=== PATIENT | female | born 1985 | race Two or more races ===

== ENCOUNTER 2024-08-07 06:35 | Emergency (ER) | payer BC, OTHER ==
[~2024-08-07] VITALS: Ht 157.5 cm; Wt 90.9 kg
[2024-08-07 07:22] VITALS: BP 121/82; PULSE 71; RESP 14; TEMP 98.2; O2SAT 96
[2024-08-07] MEDS ORDERED: IBUP-1456 PO (07:47)
[2024-08-07] MEDS: KETOROLAC TROMETH 60MG/2ML VIAL IM ONE (07:52)
== END 2024-08-07 08:04 | disposition home or self-care (01) ==
LOC: ER 06:35 → EDBD 06:35 → ER 08:04
DX: M23.92 Unspecified internal derangement of left knee (principal)
CPT/HCPCS: 73562; 96372; 99283; J1885

== ENCOUNTER 2025-03-27 16:42 | Observation (INO) | payer BC ==
[~2025-03-27 16:42] MED LIST: IBUP-1456 PO
[2025-03-27] MEDS ORDERED: METF-372 PO (17:27)
[2025-03-27] MEDS ORDERED: PREN-96 PO (17:27)
[2025-03-27] MEDS ORDERED: GLYB2.5T8 PO (17:27)
--- NOTE | 2025-03-27 17:56 | DVH ---
EXAM: US OBSTERICAL LIMITED HISTORY: decreased movement COMPARISON: None TECHNIQUE: Transabdominal imaging was utilized. Grayscale and color doppler evaluation. Images were s tored in the patient's permanent medical record. FINDINGS: Anterior placenta location. Normal cardiac heart rate measuring 149 beats per minute. No placenta abr uption or previa or accreta. Normal movement. IMPRESSION: 1. Normal appearance. 2. Normal cardiac heart rate.
--- NOTE | 2025-03-27 23:45 | DVHDS2 ---
Physician Discharge Progress N Final Diagnosis: decreased movement 29wks,gdm Operations or Procedures: Operations or Procedures nst reactive reviewed,sono Condition on Discharge: Good Disposition: Home Discharge Instructions: Diet: Consistent carbohydrate Activity: Light activity Medications: na Follow Up Care: Specialist: 1w Discharge Statement: "Patient was advised to return to the ER or call 911 if any headaches, dizziness, shortness of breath, chest pain, abdominal pain, bleeding, fevers, or worsening of medical condition. Patient was counseled about treatment plan, medications, possible side effects, patientverbalized understanding. All questions were answered to the best of my ability. This discharge took greater then 30 minutes in planning, reviewing documentation, counseling the patient, and discussing with other team members." Visit Coding OBGYN Date of Service: March 27, 2025 Billing Provider: MCKINLEY SALGADO DO BEAUTY ARTIST Common Visit Codes: [id number] OBS CARE (HIGH) BEAUTY ARTIST Procedure Codes: 26255-37- NON-STRESS TEST MCKINLEY SALGADO DO March 27, 2025 23:45
== END 2025-03-27 18:02 | disposition home or self-care (01) ==
LOC: LDRP 16:42
PROVIDERS: ADMIT Obstetrics & Gynecology; ATTEND Obstetrics & Gynecology
DX: O36.8130 Decreased fetal movements, third trimester, not applicable or unspecified (principal); O24.419 Gestational diabetes mellitus in pregnancy, unspecified control; Z3A.29 29 weeks gestation of pregnancy; Z79.899 Other long term (current) drug therapy
CPT/HCPCS: 59025; 76815; 81002; 82948; 82962; 94760; G0378

== ENCOUNTER 2025-04-13 06:46 | Observation (INO) | payer MEDICAID ==
[~2025-04-13 06:46] MED LIST changes: +GLYB2.5T8 PO; +METF-372 PO; +PREN-96 PO
--- NOTE | 2025-04-13 12:07 | DVH ---
CLINICAL HISTORY: Gestational diabetes. COMPARISON: None TECHNIQUE: biophysical profile was performed. Transabdominal sonographic images of the fetus we re obtained. FINDINGS: The fetus is in cephalic position. heart rate measures 144 BPM. Amniotic fluid index measures 17.1 cm. The placenta is anterior in position with no evidence of previa or abruption seen. BPP profile is an overall score of 8/8, with 2/2 points for breathing, with at least one episode of breathing over a 30 second duration during a 30 minute observation, 2/2 points for m ovements, with 3 or more discrete body or limb movements, 2/2 points for tone, with one or more episodes of extremity extension with return to flexion, or opening and closing of hand, and 2/ 2 points for amniotic fluid, with at least 1 pocket of amniotic fluid that measures 2 cm in 2 perpend icular planes. IMPRESSION: BPP score of 8/8.
--- NOTE | 2025-04-22 13:50 | DVHDS2 ---
Physician Discharge Progress N Final Diagnosis: gdm Operations or Procedures: Operations or Procedures nst reviewed reactive,sono Condition on Discharge: Good Disposition: Home Discharge Instructions: Diet: Consistent carbohydrate Activity: Light activity Medications: na Follow Up Care: Specialist: 3d Discharge Statement: "Patient was advised to return to the ER or call 911 if any headaches, dizziness, shortness of breath, chest pain, abdominal pain, bleeding, fevers, or worsening of medical condition. Patient was counseled about treatment plan, medications, possible side effects, patientverbalized understanding. All questions were answered to the best of my ability. This discharge took greater then 30 minutes in planning, reviewing documentation, counseling the patient, and discussing with other team members." Visit Coding OBGYN Date of Service: Apr 13, 2025 Billing Provider: MCKINLEY SALGADO DO INFRASTRUCTURE SOFTWARE ENGINEER Common Visit Codes: [id number]-[id number] OBS CARE (HIGH) INFRASTRUCTURE SOFTWARE ENGINEER Procedure Codes: 37855-21- NON-STRESS TEST MCKINLEY SALGADO DO Apr 22, 2025 13:50
== END 2025-04-13 12:34 | disposition home or self-care (01) ==
LOC: UNDOADMOB 11:00 → LDRP 11:00 → EDUNIT# 11:22 → LDRP 11:22 → UNDODISOB 12:34
PROVIDERS: ADMIT Obstetrics & Gynecology; ATTEND Obstetrics & Gynecology
DX: O24.419 Gestational diabetes mellitus in pregnancy, unspecified control (principal); Z98.890 Other specified postprocedural states; Z79.899 Other long term (current) drug therapy; Z3A.32 32 weeks gestation of pregnancy
CPT/HCPCS: 59025; 76819; 81002; 82948; 82962; 94760; G0378

== ENCOUNTER 2025-04-16 07:54 | Observation (INO) | payer MEDICAID ==
--- NOTE | 2025-04-16 08:49 | DVH ---
CLINICAL HISTORY: Gestational diabetes. COMPARISON: Prior ultrasound dated 03/27/2025. TECHNIQUE: biophysical profile was performed. Transabdominal sonographic images of the fetus we re obtained. FINDINGS: The fetus is in cephalic position. heart rate measures 132 BPM. Amniotic fluid index measures 16.2 cm. The placenta is anterior in position with no evidence of placenta previa or abrupti on. BPP profile is an overall score of 8/8, with 2/2 points for breathing, with at least one episode of breathing over a 30 second duration during a 30 minute observation, 2/2 points for m ovements, with 3 or more discrete body or limb movements, 2/2 points for tone, with one or more episodes of extremity extension with return to flexion, or opening and closing of hand, and 2/ 2 points for amniotic fluid, with at least 1 pocket of amniotic fluid that measures 2 cm in 2 perpend icular planes. IMPRESSION: BPP score of 8/8.
== END 2025-04-16 09:39 | disposition home or self-care (01) ==
LOC: LDRP 07:54
PROVIDERS: ADMIT Obstetrics & Gynecology; ATTEND Obstetrics & Gynecology
DX: O24.419 Gestational diabetes mellitus in pregnancy, unspecified control (principal); Z3A.32 32 weeks gestation of pregnancy; Z79.899 Other long term (current) drug therapy; Z98.890 Other specified postprocedural states
CPT/HCPCS: 59025; 76819; 81002; 82948; 82962; 94760; G0378

== ENCOUNTER 2025-04-20 09:26 | Observation (INO) | payer MEDICAID ==
--- NOTE | 2025-04-20 16:53 | DVH ---
BIOPHYSICAL PROFILE HISTORY: GDMA2 TECHNIQUE: Multiple real-time grayscale sonographic images through the gravid uterus of the fetus wi th duplex Doppler color flow. FINDINGS: BIOPHYSICAL PROFILE: breathing score: 2 movement score: 2 tone score: 2 Quantitative QUAN score: 2 Total score: 8 out of 8 heart rate of 142 beats per minute. lie cephalic. Placenta is anteriorly positioned. QUAN 15.5 cm. IMPRESSION: Biophysical profile score: 8 out of 8
--- NOTE | 2025-04-21 06:19 | DVHDS2 ---
Discharge Summary Date of Admission Apr 20, 2025 at 15:53 Date of Discharge: Apr 20, 2025 Admitting Diagnosis Thirty-three weeks GDM A2 here for NST which was performed as well as ultrasound Labs/Diagnostic Data: None Laboratory Results Test 04/20/25 16:50 POC Glucose 113 mg/dl (70-106) Brief Hx & Hospital Course: Patient underwent NST ultrasound all reassuring Operations or Procedures None Condition at Discharge: Good Final Diagnosis/Problems List 33 weeks GDM A2 advanced maternal age Discharge Disposition: Home Discharge Instruct/Medications Diet: Consistent carbohydrate Activity: Light activity Follow Up/Referral: As scheduled kick counts labor precautions sugar precautions Discharge Statement: "Patient was advised to return to the ER or call 911 if any headaches, dizziness, shortness of breath, chest pain, abdominal pain, bleeding, fevers, or worsening of medical condition. Patient was counseled about treatment plan, medications, possible side effects, patientverbalized understanding. All questions were answered to the best of my ability. This discharge took greater then 30 minutes in planning, reviewing documentation, counseling the patient, and discussing with other team members." ASSESSMENT ASSESSMENT Assessment Visit Coding OBGYN Date of Service: Apr 20, 2025 Billing Provider: SHARYN SOUTH DO BILINGUAL TEACHER Common Visit Codes: 01470-YTS/OBS SAME DATE (LOW), 60045-KTX/OBS SAME DATE (MOD), 71566-CYM/OBS SAME DATE (HIGH) BILINGUAL TEACHER Procedure Codes: 88706-54- NON-STRESS TEST SHARYN SOUTH DO Apr 21, 2025 06:19
== END 2025-04-20 17:15 | disposition home or self-care (01) ==
LOC: LDRP 09:26 → UNDOADMOB 15:53 → LDRP 15:53 → UNDODISOB 17:15
PROVIDERS: ADMIT Obstetrics & Gynecology; ATTEND Obstetrics & Gynecology
DX: O24.419 Gestational diabetes mellitus in pregnancy, unspecified control (principal); Z98.890 Other specified postprocedural states; Z79.899 Other long term (current) drug therapy; Z3A.33 33 weeks gestation of pregnancy
CPT/HCPCS: 59025; 76819; 81002; 82948; 82962; 94760; G0378

== ENCOUNTER 2025-04-23 14:00 | Observation (INO) | payer MEDICAID ==
--- NOTE | 2025-04-23 16:11 | DVH ---
EXAM: US BIOPHYSICAL PROFILE HISTORY: GDMA2/AMA COMPARISON: US BIOPHYSICAL PROFILE on DOS: 04/20/25, US BIOPHYSICAL PROFILE on DOS: 04/16/25 TECHNIQUE: Multiple transabdominal real-time grayscale sonographic images through the gravid uterus of the fetus with duplex Doppler color flow and M-mode spectral analysis Findings/Impression: Single live intrauterine in vertex presentation with heart rate of 130 bpm. Biophysical profile was performed with 2 points for respirations, 2 points for movement, 2 points for tone and 2 points for amniotic fluid index. Biophysical profile score of 8/8. Amniotic fluid is within normal limits with QUAN 20.0 cm and MVP 6.7 cm. Normal QUAN (5-25 cm) Normal MVP (2-8 cm)
--- NOTE | 2025-04-24 13:34 | DVHDS2 ---
Physician Discharge Progress N Final Diagnosis: cholestasis of preg 34wks Operations or Procedures: Operations or Procedures nst reactive reviwed,millieo Condition on Discharge: Good Disposition: Home Discharge Instructions: Diet: Consistent carbohydrate Activity: Light activity Medications: na Follow Up Care: Specialist: 3d Discharge Statement: "Patient was advised to return to the ER or call 911 if any headaches, dizziness, shortness of breath, chest pain, abdominal pain, bleeding, fevers, or worsening of medical condition. Patient was counseled about treatment plan, medications, possible side effects, patientverbalized understanding. All questions were answered to the best of my ability. This discharge took greater then 30 minutes in planning, reviewing documentation, counseling the patient, and discussing with other team members." Visit Coding OBGYN Date of Service: Apr 24, 2025 Billing Provider: MCKINLEY SALGADO DO HARPOONER Common Visit Codes: 39031-[id number] OBS CARE (HIGH) HARPOONER Procedure Codes: 82589-81- NON-STRESS TEST MCKINLEY SALGADO DO Apr 24, 2025 13:34
== END 2025-04-23 16:05 | disposition home or self-care (01) ==
LOC: LDRP 14:00
PROVIDERS: ADMIT Obstetrics & Gynecology; ATTEND Obstetrics & Gynecology
DX: O26.643 Intrahepatic cholestasis of pregnancy, third trimester (principal); K83.1 Obstruction of bile duct; Z3A.34 34 weeks gestation of pregnancy; Z79.899 Other long term (current) drug therapy; Z98.890 Other specified postprocedural states
CPT/HCPCS: 59025; 76819; 81002; 82948; 82962; 94760; G0378

== ENCOUNTER 2025-04-27 02:31 | Observation (INO) | payer MEDICAID ==
--- NOTE | 2025-04-27 14:45 | DVH ---
BIOPHYSICAL PROFILE HISTORY: GDMA2, AMA TECHNIQUE: Multiple transabdominal real-time grayscale sonographic images through the gravid uterus of the fetus with duplex Doppler color flow and M-mode spectral analysis FINDINGS: BIOPHYSICAL PROFILE: breathing score: 2 movement score: 2 tone score: 2 Quantitative QUAN score: 2 (QUAN: 21 Cm.) Total score: 8 The cervix not well visualized. Single live fetus in cephalic presentation. heart rate 151 beats per minute. Anterior placenta without previa or abruption IMPRESSION: Biophysical profile score: 8
--- NOTE | 2025-04-28 06:21 | DVHDS2 ---
Discharge Summary Discharge Summary Date of Admission: Apr 27, 2025 Date of Discharge: Apr 27, 2025 Discharge Diagnosis: 34 weeks GDMA2, AMA Procedures NST US Brief History: NST BPP performed reassuring Hospital Course nst US performed Physical exam on Discharge normal Discharge Disposition: Home Discharge Instructions kick counts labor precautions Medications resume home meds Follow up as scheduled Visit Coding OBGYN Date of Service: Apr 27, 2025 Billing Provider: SHARYN SOUTH DO LICENSE REGISTRATION EXAMINER Common Visit Codes: 25299-LOC/OBS SAME DATE (LOW), 76198-VWG/OBS SAME DATE (MOD), 92041-RCA/OBS SAME DATE (HIGH) LICENSE REGISTRATION EXAMINER Procedure Codes: 73880-53- NON-STRESS TEST SHARYN SOUTH DO Apr 28, 2025 06:21
== END 2025-04-27 15:13 | disposition home or self-care (01) ==
LOC: LDRP 13:58
PROVIDERS: ADMIT Obstetrics & Gynecology; ATTEND Obstetrics & Gynecology
DX: O24.419 Gestational diabetes mellitus in pregnancy, unspecified control (principal); Z3A.34 34 weeks gestation of pregnancy; Z98.890 Other specified postprocedural states; Z79.899 Other long term (current) drug therapy
CPT/HCPCS: 59025; 76819; 81002; 82948; 82962; 94760; G0378

== ENCOUNTER 2025-04-30 10:35 | Observation (INO) | payer MEDICAID ==
[~2025-04-30] VITALS: Ht 157.5 cm; Wt 91.2 kg
--- NOTE | 2025-04-30 19:34 | DVH ---
BIOPHYSICAL PROFILE HISTORY: GDMA2/AMA Comparison Study: US BIOPHYSICAL PROFILE on DOS: 04/27/25, US BIOPHYSICAL PROFILE on DOS: 04/23/25, US BIOPHYSICAL PROFILE on DOS: 04/20/25, US BIOPHYSICAL PROFILE on DOS: 04/16/25 TECHNIQUE: Multiple real-time grayscale sonographic images through the gravid uterus of the fetus wi th duplex Doppler color flow and M-mode spectral analysis FINDINGS: BIOPHYSICAL PROFILE: breathing score: 2 movement score: 2 tone score: 2 Quantitative QUAN score: 2 (QUAN: 17.5 Cm.) Total score: 8 The cervix is not visualized Single live fetus in cephalic presentation. heart rate 142 beats per minute. Anterior placenta without previa or abruption IMPRESSION: Biophysical profile score: 8
--- NOTE | 2025-05-01 07:32 | DVHDS2 ---
Physician Discharge Progress N Final Diagnosis: gdma2 Operations or Procedures: Operations or Procedures nst reactive reviwed,sono Condition on Discharge: Good Disposition: Home Discharge Instructions: Diet: Consistent carbohydrate Activity: No Restrictions, As Tolerated Medications: na Follow Up Care: Specialist: 4d Discharge Statement: "Patient was advised to return to the ER or call 911 if any headaches, dizziness, shortness of breath, chest pain, abdominal pain, bleeding, fevers, or worsening of medical condition. Patient was counseled about treatment plan, medications, possible side effects, patientverbalized understanding. All questions were answered to the best of my ability. This discharge took greater then 30 minutes in planning, reviewing documentation, counseling the patient, and discussing with other team members." Visit Coding OBGYN Date of Service: Apr 30, 2025 Billing Provider: MCKINLEY SALGADO DO HUB ASSOCIATE Common Visit Codes: 55203-[id number] INP/OBS CARE (HIGH) HUB ASSOCIATE Procedure Codes: 14574-52- NON-STRESS TEST MCKINLEY SALGADO DO May 01, 2025 07:32
== END 2025-04-30 19:35 | disposition home or self-care (01) ==
LOC: LDRP 18:20
PROVIDERS: ADMIT Obstetrics & Gynecology; ATTEND Obstetrics & Gynecology
DX: O24.419 Gestational diabetes mellitus in pregnancy, unspecified control (principal); Z3A.34 34 weeks gestation of pregnancy; Z79.899 Other long term (current) drug therapy; Z98.890 Other specified postprocedural states
CPT/HCPCS: 59025; 76819; 81002; 82948; 82962; 94760; G0378

== ENCOUNTER 2025-05-04 06:41 | Observation (INO) | payer MEDICAID ==
--- NOTE | 2025-05-04 15:43 | DVH ---
BIOPHYSICAL PROFILE HISTORY: GDAM2/AMA TECHNIQUE: Multiple real-time grayscale sonographic images through the gravid uterus of the fetus wi th duplex Doppler color flow. FINDINGS: BIOPHYSICAL PROFILE: breathing score: 2 movement score: 2 tone score: 2 Quantitative QUAN score: 2 Total score: 8 out of 8 Placenta anteriorly positioned. Placental calcifications. heart rate of 149 beats per minute. Cephalic lie. QUAN 13.4 cm. IMPRESSION: Biophysical profile score: 8 out of 8
--- NOTE | 2025-05-05 01:23 | DVHDS2 ---
Discharge Summary Date of Admission May 04, 2025 at 13:50 Date of Discharge: May 04, 2025 Admitting Diagnosis GDM A2 advanced maternal age 35 weeks Wounds: None Labs/Diagnostic Data: Laboratory Results Test 05/04/25 14:28 POC Glucose 141 mg/dl (70-106) Brief Hx & Hospital Course: Patient here for routine GDA him a to monitoring NST performs was ultrasound reassured Consults/Reason for consult GDM A2 Operations or Procedures None Condition at Discharge: Good Final Diagnosis/Problems List GDM A2 35 weeks Discharge Disposition: Home Discharge Instruct/Medications Diet: Consistent carbohydrate Activity: No Restrictions, As Tolerated Activity comment: kick counts labor precautions Follow Up/Referral: As scheduled biweekly Scheduled Glyburide (Glyburide), 2.5 MG PO DAILY, (Reported) Ibuprofen (Ibuprofen), 1 TAB PO TID Metformin Hydrochloride (Metformin Hcl), 1,000 MG PO DAILY, (Reported) Vit W/ Ferrous Fumara ( One Daily), 1 TAB PO DAILY, (Reported) Discharge Statement: "Patient was advised to return to the ER or call 911 if any headaches, dizziness, shortness of breath, chest pain, abdominal pain, bleeding, fevers, or worsening of medical condition. Patient was counseled about treatment plan, medications, possible side effects, patientverbalized understanding. All questions were answered to the best of my ability. This discharge took greater then 30 minutes in planning, reviewing documentation, counseling the patient, and discussing with other team members." ASSESSMENT ASSESSMENT Assessment Visit Coding OBGYN Date of Service: May 04, 2025 Billing Provider: SHARYN SOUTH DO CHILD CARE EDUCATION COORDINATOR Common Visit Codes: 14552-[id number] INP/OBS CARE(HIGH), 54794-CCT/OBS SAME DATE (LOW), 08627-UYB/OBS SAME DATE (MOD), 17321-CPX/OBS SAME DATE (HIGH) CHILD CARE EDUCATION COORDINATOR Procedure Codes: 54629-39- NON-STRESS TEST SHARYN SOUTH DO May 05, 2025 01:23
== END 2025-05-04 15:43 | disposition home or self-care (01) ==
LOC: LDRP 13:50
PROVIDERS: ADMIT Obstetrics & Gynecology; ATTEND Obstetrics & Gynecology
DX: O24.419 Gestational diabetes mellitus in pregnancy, unspecified control (principal); Z3A.35 35 weeks gestation of pregnancy; Z79.899 Other long term (current) drug therapy; Z98.890 Other specified postprocedural states
CPT/HCPCS: 59025; 76819; 81002; 82948; 82962; 94760; G0378

== ENCOUNTER 2025-05-07 02:28 | Observation (INO) | payer MEDICAID ==
[~2025-05-07] VITALS: Ht 157.5 cm; Wt 95.3 kg
--- NOTE | 2025-05-07 14:37 | DVH ---
BIOPHYSICAL PROFILE HISTORY: GDMA2/AMA TECHNIQUE: Multiple transabdominal real-time grayscale sonographic images through the gravid uterus of the fetus with duplex Doppler color flow and M-mode spectral analysis FINDINGS: BIOPHYSICAL PROFILE: breathing score: 2 movement score: 2 tone score: 2 Quantitative QUAN score: 2 (QUAN: 13.4 Cm.) Total score: 8 The cervix is not well-visualized Single live fetus in cephalic presentation. heart rate 143 beats per minute. Grade 3 anterior placenta without previa or abruption IMPRESSION: Biophysical profile score: 8/8
--- NOTE | 2025-05-12 15:16 | DVHDS2 ---
Physician Discharge Progress N Final Diagnosis: gdm 35wks Operations or Procedures: Operations or Procedures nst reviewed,reactive,sono Condition on Discharge: Good Disposition: Home Discharge Instructions: Diet: Consistent carbohydrate Activity: Light activity Medications: na Follow Up Care: Specialist: 3d Discharge Statement: "Patient was advised to return to the ER or call 911 if any headaches, dizziness, shortness of breath, chest pain, abdominal pain, bleeding, fevers, or worsening of medical condition. Patient was counseled about treatment plan, medications, possible side effects, patientverbalized understanding. All questions were answered to the best of my ability. This discharge took greater then 30 minutes in planning, reviewing document ation, counseling the patient, and discussing with other team members." Visit Coding OBGYN Date of Service: May 07, 2025 Billing Provider: MCKINLEY SALGADO DO ENTERTAINMENT PRODUCTION PROFESSIONAL Common Visit Codes: 50862-FHVHMDE OBS CARE (HIGH) ENTERTAINMENT PRODUCTION PROFESSIONAL Procedure Codes: 67357-52- NON-STRESS TEST MCKINLEY SALGADO DO May 12, 2025 15:16
== END 2025-05-07 15:07 | disposition home or self-care (01) ==
LOC: LDRP 13:50
PROVIDERS: ADMIT Obstetrics & Gynecology; ATTEND Obstetrics & Gynecology
DX: O24.419 Gestational diabetes mellitus in pregnancy, unspecified control (principal); O09.523 Supervision of elderly multigravida, third trimester; Z3A.35 35 weeks gestation of pregnancy; Z79.899 Other long term (current) drug therapy; Z98.890 Other specified postprocedural states
CPT/HCPCS: 59025; 76819; 81002; 94760; G0378

== ENCOUNTER 2025-05-11 09:55 | Observation (INO) | payer MEDICAID ==
--- NOTE | 2025-05-11 10:54 | DVH ---
CLINICAL HISTORY: Gestational diabetes. Advanced maternal age. COMPARISON: US BIOPHYSICAL PROFILE on DOS: 05/07/25, US BIOPHYSICAL PROFILE on DOS: 05/04/25, US BIOPHYS ICAL PROFILE on DOS: 04/30/25 TECHNIQUE: biophysical profile was performed. Transabdominal sonographic images of the fetus we re obtained. FINDINGS: The fetus is in cephalic position. heart rate measures 143 BPM. Amniotic fluid index measures 17.2 cm. The placenta is anterior in position without visualized evidence for previa or abru ption. BPP profile is an overall score of 8/8, with 2/2 points for breathing, with at least one episode of breathing over a 30 second duration during a 30 minute observation, 2/2 points for m ovements, with 3 or more discrete body or limb movements, 2/2 points for tone, with one or more episodes of extremity extension with return to flexion, or opening and closing of hand, and 2/ 2 points for amniotic fluid, with at least 1 pocket of amniotic fluid that measures 2 cm in 2 perpend icular planes. IMPRESSION: BPP score of 8/8.
--- NOTE | 2025-05-11 22:01 | DVHDS2 ---
Discharge Summary Date of Admission May 11, 2025 at 09:55 Date of Discharge: May 11, 2025 Admitting Diagnosis GDMA2 36 wks Labs/Diagnostic Data: Laboratory Results Test 05/11/25 10:43 POC Glucose 89 mg/dl (70-106) Brief Hx & Hospital Course: GDMA2 AMA Condition at Discharge: Good Final Diagnosis/Problems List 36 wks GDMA2, AMA Discharge Disposition: Home Discharge Instruct/Medications Diet: Consistent carbohydrate Activity: No Restrictions, As Tolerated Follow Up/Referral: as scheduled Scheduled Glyburide (Glyburide), 2.5 MG PO DAILY, (Reported) Ibuprofen (Ibuprofen), 1 TAB PO TID Metformin Hydrochloride (Metformin Hcl), 1,000 MG PO DAILY, (Reported) Vit W/ Ferrous Fumara ( One Daily), 1 TAB PO DAILY, (Reported) Discharge Statement: "Patient was advised to return to the ER or call 911 if any headaches, dizziness, shortness of breath, chest pain, abdominal pain, bleeding, fevers, or worsening of medical condition. Patient was counseled about treatment plan, medications, possible side effects, patientverbalized understanding. All questions were answered to the best of my ability. This discharge took greater then 30 minutes in planning, reviewing documentation, counseling the patient, and discussing with other team members." ASSESSMENT ASSESSMENT Assessment Visit Coding OBGYN Date of Service: May 11, 2025 Billing Provider: SHARYN SOUTH DO LUNG SPLITTER Common Visit Codes: 74059-[id number] INP/OBS CARE(HIGH), 26878-MDN/OBS SAME DATE (LOW), 43772-MMV/OBS SAME DATE (MOD) LUNG SPLITTER Procedure Codes: 00389-86- NON-STRESS TEST ( ) SHARYN SOUTH DO May 11, 2025 22:01
== END 2025-05-11 11:15 | disposition home or self-care (01) ==
LOC: LDRP 09:55
PROVIDERS: ADMIT Obstetrics & Gynecology; ATTEND Obstetrics & Gynecology
DX: O24.419 Gestational diabetes mellitus in pregnancy, unspecified control (principal); Z3A.36 36 weeks gestation of pregnancy; Z79.899 Other long term (current) drug therapy; Z98.890 Other specified postprocedural states
CPT/HCPCS: 59025; 76819; 81002; 82948; 82962; 94760; G0378

== ENCOUNTER 2025-05-14 06:55 | Observation (INO) | payer MEDICAID ==
--- NOTE | 2025-05-14 15:20 | DVH ---
BIOPHYSICAL PROFILE HISTORY: GDMA2, AMA TECHNIQUE: Multiple transabdominal real-time grayscale sonographic images through the gravid uterus of the fetus with duplex Doppler color flow and M-mode spectral analysis FINDINGS: BIOPHYSICAL PROFILE: breathing score: 2 movement score: 2 tone score: 2 Quantitative QUAN score: 2 (QUAN: 15.3 Cm.) Total score: 8 The cervix not well visualized. Single live fetus in vertex presentation. heart rate 126 beats per minute. Grade 3 anterior placenta without previa or abruption IMPRESSION: Biophysical profile score: 8
--- NOTE | 2025-05-16 08:23 | DVHDS2 ---
Physician Discharge Progress N Final Diagnosis: gdm 36wks Operations or Procedures: Operations or Procedures nst reactive reviwed,sono Condition on Discharge: Good Disposition: Home Discharge Instructions: Diet: Consistent carbohydrate Activity: No Restrictions, As Tolerated Follow Up/Referral: [facility] at 2:00 pm for NST/BPP Medications: na Follow Up Care: Specialist: 1w Discharge Statement: "Patient was advised to return to the ER or call 911 if any headaches, dizziness, shortness of breath, chest pain, abdominal pain, bleeding, fevers, or worsening of medical condition. Patient was counseled about treatment plan, medications, possible side effects, patientverbalized understanding. All questions were answered to the best of my ability. This discharge took greater then 30 minutes in planning, reviewing documentation , counseling the patient, and discussing with other team members." Visit Coding OBGYN Date of Service: May 14, 2025 Billing Provider: MCKINLEY SALGADO DO STAGE DIRECTOR Common Visit Codes: 74340-GSCHGFV OBS CARE (HIGH) STAGE DIRECTOR Procedure Codes: 35969-72- NON-STRESS TEST MCKINLEY SALGADO DO May 16, 2025 08:23
== END 2025-05-14 16:10 | disposition home or self-care (01) ==
LOC: LDRP 13:55
PROVIDERS: ADMIT Obstetrics & Gynecology; ATTEND Obstetrics & Gynecology
DX: O24.419 Gestational diabetes mellitus in pregnancy, unspecified control (principal); O26.893 Other specified pregnancy related conditions, third trimester; M79.89 Other specified soft tissue disorders; Z3A.36 36 weeks gestation of pregnancy; Z79.899 Other long term (current) drug therapy
CPT/HCPCS: 59025; 76819; 81002; 82948; 82962; G0378

== ENCOUNTER 2025-05-22 06:01 | Observation (INO) | payer MEDICAID ==
--- NOTE | 2025-05-22 16:11 | DVHDS2 ---
Physician Discharge Progress N Final Diagnosis: gdm 37wks Operations or Procedures: Operations or Procedures nst reactive reviwed,sono Condition on Discharge: Good Disposition: Home Discharge Instructions: Diet: Consistent carbohydrate Activity: No Restrictions, As Tolerated Medications: na Follow Up Care: Specialist: 3d Discharge Statement: "Patient was advised to return to the ER or call 911 if any headaches, dizziness, shortness of breath, chest pain, abdominal pain, bleeding, fevers, or worsening of medical condition. Patient was counseled about treatment plan, medications, possible side effects, patientverbalized understanding. All questions were answered to the best of my ability. This discharge took greater then 30 minutes in planning, reviewing documentation, counseling the patient, and discussing with other team members." Visit Coding OBGYN Date of Service: May 22, 2025 Billing Provider: MCKINLEY SALGADO DO COMBINING MACHINE OPERATOR Common Visit Codes: 43735-[id number] OBS CARE (HIGH) COMBINING MACHINE OPERATOR Procedure Codes: 52144-58- NON-STRESS TEST MCKINLEY SALGADO DO May 22, 2025 16:11
--- NOTE | 2025-05-22 18:37 | DVH ---
BIOPHYSICAL PROFILE HISTORY: GDMA2/ AMA TECHNIQUE: Multiple transabdominal real-time grayscale sonographic images through the gravid uterus of the fetus with duplex Doppler color flow and M-mode spectral analysis FINDINGS: BIOPHYSICAL PROFILE: breathing score: 2 movement score: 2 tone score: 2 Quantitative QUAN score: 2 (QUAN: 16.76 Cm.) Total score: 8 The cervix is not well-visualized Single live fetus in cephalic presentation. heart rate 142 beats per minute. Grade 3 anterior placenta without previa or abruption IMPRESSION: Biophysical profile score: 8
== END 2025-05-22 16:55 | disposition home or self-care (01) ==
LOC: UNDOADMOB 14:57 → LDRP 14:57
PROVIDERS: ADMIT Obstetrics & Gynecology; ATTEND Obstetrics & Gynecology
DX: O24.419 Gestational diabetes mellitus in pregnancy, unspecified control (principal); Z3A.37 37 weeks gestation of pregnancy; Z79.899 Other long term (current) drug therapy
CPT/HCPCS: 59025; 76819; 81002; 82962; G0378

== ENCOUNTER 2025-05-25 06:50 | Observation (INO) | payer MEDICAID ==
--- NOTE | 2025-05-25 16:13 | DVH ---
BIOPHYSICAL PROFILE HISTORY: GDMA2, AMA TECHNIQUE: Multiple transabdominal real-time grayscale sonographic images through the gravid uterus of the fetus with duplex Doppler color flow and M-mode spectral analysis FINDINGS: BIOPHYSICAL PROFILE: breathing score: 2/2 movement score: 2/2 tone score: 2/2 Quantitative QUAN score: 2/2 (QUAN: 17.3 Cm.) Total score: 8/8 The cervix closed Single live fetus in cephalic presentation. heart rate 140 beats per minute. Anterior placenta without previa or abruption IMPRESSION: 1. Biophysical profile score: 8 out 8
--- NOTE | 2025-05-25 16:23 | DVHDS2 ---
Physician Discharge Progress N Final Diagnosis: GDMA2, AMA Secondary Diagnosis: Encounter for surveillance Operations or Procedures: Operations or Procedures NST/BPP/ QUAN all Normal PATIENT: ESTRELLA CORTEZ ACCT: [id number] UNIT: [id number] : 1985 LOC: [facility] ROOM / BED: TRIAGE1 / A AGE / SEX: 39 / F ADM STATUS: ADM IN SERVICE 1512 ORDERING PHYSICIAN: ARAVIND AMADO DO PROCEDURE(s): BPP - BIOPHYSICAL PROFILE REASON: GDMA2, AMA ORDER NUMBER(s): [id number], ACCESSION NUMBER(s): [id number] BIOPHYSICAL PROFILE HISTORY: GDMA2, AMA TECHNIQUE: Multiple transabdominal real-time grayscale sonographic images through the gravid uterus of the fetus with duplex Doppler color flow and M-mode spectral analysis FINDINGS: BIOPHYSICAL PROFILE: breathing score: 2/2 movement score: 2/2 tone score: 2/2 Quantitative QUAN score: 2/2 (QUAN: 17.3 Cm.) Total score: 8/8 The cervix closed Single live fetus in cephalic presentation. heart rate 140 beats per minute. Anterior placenta without previa or abruption IMPRESSION: 1. Biophysical profile score: 8 out 8 ATED BY: MIKE JOHNSON MD DICTATED DATE/TIME: 05/25/25 1611 Condition on Discharge: Stable Disposition: Home Discharge Instructions: Diet: Consistent carbohydrate Activity: No Restrictions, As Tolerated Follow Up/Referral: as scheduled Medications: NA Follow Up Care: Discharge Statement: "Patient was advised to return to the ER or call 911 if any headaches, dizziness, shortness of breath, chest pain, abdominal pain, bleeding, fevers, or worsening of medical condition. Patient was counseled about treatment plan, medications, possible side effects, patientverbalized understanding. All questions were answered to the best of my ability. This discharge took greater then 30 minutes in planning, reviewing documentation, counseling the patient, and discussing with other team members." Visit Coding OBGYN Date of Service: May 25, 2025 Billing Provider: ARAVIND AMADO DO INTERVENTIONAL TECH Common Visit Codes: 53881-PMH/OBS SAME DATE (MOD) INTERVENTIONAL TECH Procedure Codes: 75641-72- NON-STRESS TEST ARAVIND AMADO DO May 25, 2025 16:23
== END 2025-05-25 16:00 | disposition home or self-care (01) ==
LOC: LDRP 15:05
PROVIDERS: ADMIT Obstetrics & Gynecology; ATTEND Obstetrics & Gynecology
DX: O24.419 Gestational diabetes mellitus in pregnancy, unspecified control (principal); O09.523 Supervision of elderly multigravida, third trimester; Z98.890 Other specified postprocedural states; Z79.899 Other long term (current) drug therapy; Z3A.38 38 weeks gestation of pregnancy
CPT/HCPCS: 59025; 76819; 81002; 82948; 82962; 94760; G0378

== ENCOUNTER 2025-05-28 06:18 | Observation (INO) | payer MEDICAID ==
--- NOTE | 2025-05-28 15:59 | DVH ---
EXAM: US BIOPHYSICAL PROFILE HISTORY: GDMA2/AMA COMPARISON: US BIOPHYSICAL PROFILE on DOS: 05/25/25, US BIOPHYSICAL PROFILE on DOS: 05/22/25, US BIOPHY SICAL PROFILE on DOS: 05/14/25 TECHNIQUE: Multiple transabdominal real-time grayscale sonographic images through the gravid uterus of the fetus with duplex Doppler color flow and M-mode spectral analysis Findings/Impression: Single live intrauterine in vertex presentation with heart rate of 140 bpm. Biophysical profile was performed with 2 points for respirations, 2 points for movement, 2 points for tone and 2 points for amniotic fluid index. Biophysical profile score of 8/8. Amniotic fluid is within normal limits with QUAN 15.4 cm and MVP 4.6 cm. Normal QUAN (5-25 cm) Normal MVP (2-8 cm)
--- NOTE | 2025-05-29 08:34 | DVHDS2 ---
Physician Discharge Progress N Final Diagnosis: gdma2,ama 38wks Operations or Procedures: Operations or Procedures nst reactive jeff toney Consultations: Consultations pt is being seen at [facility] fu there angel Condition on Discharge: Good Disposition: Home Discharge Instructions: Diet: Regular Activity: No Restrictions, As Tolerated Follow Up/Referral: as scheduled. Medications: na Follow Up Care: Specialist: fu with [facility] Discharge Statement: "Patient was advised to return to the ER or call 911 if any headaches, dizziness, shortness of breath, chest pain, abdominal pain, bleeding, fevers, or worsening of medical condition. Patient was counseled about treatment plan, medications, possible side effects, patientverbalized understanding. All questions were answered to the best of my ability. This discharge took greater then 30 minutes in planning, reviewing documentation, counseling the patient, and discussing with other team members." Visit Coding OBGYN Date of Service: May 28, 2025 Billing Provider: MCKINLEY SALGADO DO [employer] Common Visit Codes: 36856-HJADAHL OBS CARE (HIGH) [employer] Procedure Codes: 32940-68- NON-STRESS TEST MCKINLEY SALGADO DO May 29, 2025 08:34
== END 2025-05-28 16:35 | disposition home or self-care (01) ==
LOC: UNDOADMOB 14:45 → LDRP 14:45
PROVIDERS: ADMIT Obstetrics & Gynecology; ATTEND Obstetrics & Gynecology
DX: O24.419 Gestational diabetes mellitus in pregnancy, unspecified control (principal); O09.513 Supervision of elderly primigravida, third trimester; Z3A.38 38 weeks gestation of pregnancy; Z79.899 Other long term (current) drug therapy
CPT/HCPCS: 59025; 76819; 81002; 82948; 82962; 94760; G0378